=== PATIENT | female | born 1965 | race Caucasian/White ===

== ENCOUNTER 2020-06-29 11:01 | Emergency (ER) | payer MEDICARE ==
[2020-06-29 11:49] LABS: HEMOGLOBIN 15.8 gm/dl (12.3-15.3); RED BLOOD COUNT 4.84 M/UL (4.00-5.10); WHITE BLOOD COUNT 9.1 K/UL (4.5-11.0)
[2020-06-29 12:31] LABS: BUN/CREATININE RATIO 7 (0-10)
== END 2020-06-29 14:19 | disposition home or self-care (01) ==
LOC: ER1 11:01
PROVIDERS: Emergency Medicine
DX: K80.20 Calculus of gallbladder without cholecystitis without obstruction (principal); I73.9 Peripheral vascular disease, unspecified; F17.200 Nicotine dependence, unspecified, uncomplicated; Z98.51 Tubal ligation status
CPT/HCPCS: 76705; 80053; 82550; 82553; 83605; 83690; 83874; 84484; 85025; 93005; 93925; 96374; 96375; 99284; J2270; J2405; J7030

== ENCOUNTER 2020-06-29 15:48 | Emergency (ER) | payer MEDICARE, OTHER | END 2020-06-29 16:06 | disposition left against medical advice (07) | LOC: ER1 15:48 | DX: R10.9 Unspecified abdominal pain (principal); I10 Essential (primary) hypertension; Z53.21 Procedure and treatment not carried out due to patient leaving prior to being seen by health care provider ==